=== PATIENT | male | born 1960 | race Caucasian/White ===

== ENCOUNTER → 2017-11-01 10:26 | Outpatient (CLI) | payer OTHER, SELFPAY ==
--- NOTE | 2017-11-01 10:29 | XR_ITS ---
XR ankle LT min 3V Ordering Physician: Marty Peterson MD Patient Age: 57 years: Male HISTORY: ITS.REASON: Left fib fx TECHNIQUE: 3 views left ankle COMPARISON :10/25/2017 FINDINGS . Fiberglas cast in place. The spiral fracture distal fibula again evident best seen on the lateral view.. On the lateral view there is a very subtle of 1-1.5 mm minor step-off of the cortex posteriorly with perhaps very subtle posterior offset of the distal fragment questioned. This this could be due to slight different projection angle of the lateral image, as well but noted. . Overall there is good alignment & apposition with only minimal distraction posteriorly.. A generous soft tissue swelling laterally overlying the lateral malleolus and fracture again noted IMPRESSION: Spiral fracture distal fibula now in fiberglass cast
== END ==
PROVIDERS: PCP Emergency Medicine; Visit Provider Orthopaedic Surgery
DX: S82.402A Unspecified fracture of shaft of left fibula, initial encounter for closed fracture (principal)
CPT/HCPCS: 73610

== ENCOUNTER → 2017-12-08 09:46 | Outpatient (CLI) | payer OTHER, SELFPAY ==
--- NOTE | 2017-12-08 09:48 | XR_ITS ---
XR ankle LT min 3V HISTORY: Follow-up fracture ITS.REASON: left fib fx/ xrays out of cast ORDERING PHYSICIAN: Marty Peterson MD PATIENT AGE: 57 years COMPARISON: 11/01/2017 FINDINGS: The cast has been removed. Oblique fracture of the distal fibula is once again noted with some minimal callus formation noted. There is good alignment. IMPRESSION: Healing oblique fracture distal fibula. Fracture line is still visible
== END ==
PROVIDERS: PCP Emergency Medicine; Visit Provider Orthopaedic Surgery
DX: S82.402A Unspecified fracture of shaft of left fibula, initial encounter for closed fracture (principal)
CPT/HCPCS: 73610

== ENCOUNTER 2017-12-08 10:42 | Outpatient (RCR) | payer OTHER, SELFPAY | END 2017-12-08 10:43 | disposition home or self-care (01) | LOC: PT 10:42 | PROVIDERS: Family Provider Emergency Medicine; PCP Emergency Medicine; Visit Provider Orthopaedic Surgery | DX: S82.402A Unspecified fracture of shaft of left fibula, initial encounter for closed fracture (principal) | CPT/HCPCS: 97760 ==

== ENCOUNTER → 2017-12-28 08:43 | Outpatient (CLI) | payer OTHER, SELFPAY ==
--- NOTE | 2017-12-28 08:45 | XR_ITS ---
XR ankle LT min 3V HISTORY: Follow-up fracture ITS.REASON: Left fibula Fracture ORDERING PHYSICIAN: Marty Peterson MD PATIENT AGE: 57 years Comparison: 12/08/2018 FINDINGS: Nondisplaced oblique distal fibular fracture once again noted. Fracture line appears somewhat less apparent and may represent an early healing. IMPRESSION: Good alignment healing distal fibular fracture
== END ==
PROVIDERS: PCP Emergency Medicine; Visit Provider Orthopaedic Surgery
DX: S82.402D Unspecified fracture of shaft of left fibula, subsequent encounter for closed fracture with routine healing (principal)
CPT/HCPCS: 73610

== ENCOUNTER → 2018-01-27 10:09 | Outpatient (CLI) | payer OTHER, SELFPAY ==
--- NOTE | 2018-01-27 10:10 | XR_ITS ---
XR ankle LT min 3V HISTORY: ITS.REASON: follow up left fibular fracture. ORDERING PHYSICIAN: Ronald Perdomo MD PATIENT AGE: 57 years Comparison: 12/28/2017 FINDINGS: Nondisplaced oblique distal fibular fracture once again noted is overall not significantly changed. Fracture line is still visible. In addition, there is a faint lucency at the posterior distal aspect of the tibia suggesting a nondisplaced fracture which extends into the articular surface of the distal tibia.. There is mild disuse osteopenia at the ankle joint. IMPRESSION: 1. Overall no change oblique nondisplaced distal fibular fracture. 2. Also suspect a nondisplaced fracture of the posterior distal tibia
== END ==
PROVIDERS: PCP Emergency Medicine; Visit Provider Orthopaedic Surgery
DX: S82.402A Unspecified fracture of shaft of left fibula, initial encounter for closed fracture (principal)
CPT/HCPCS: 73610

== ENCOUNTER 2018-03-07 14:30 | Outpatient (RCR) | payer OTHER, SELFPAY ==
--- NOTE | 2017-12-31 13:35 | HMH.PTOPEV ---
PT Outpatient Evaluation Rehab PT Outpatient Evaluation Start: 12/31/17 12:54 Freq: Status: Active Protocol: Document 12/31/17 13:26 ISMAEL (Rec: 12/31/17 13:35 PHORNE [id number]) Electronically Signed By Steven Munson, PT 12/31/17 13:26 Outpatient Therapy Subjective History Subjective History Pt is 57 yowm who presents ~ 2 mos S/P left oblique fibula fx, treated conservatively, with stiffness and edema. He reports mild pain only, but continues to have difficulty with full WB'ing. He reports difficulty getting his shoe on the affected foot due to edema. He reports no significant PMH. Chief Complaint Pain Stiff Swelling Symptom Type Ache Symptoms Relieved By Rest/Positioning Symptoms Aggravated By Walking Prior Functional Limitations None Current Functional Limitations Walking Symptom Description Intermittent Activity Dependent Level of pain today (0-10) 2 Pain scale - at its worst (0-10) 4 Ankle/Foot Eval Gait Observation General Gait Pattern Observation Antalgic Gait Decrease Weight Bear (L) Assistive Device Ambulation Assistive Device Axillary Crutches Palpation Tenderness left Ankle/Foot Palpation Findings Tenderness Ankle/Foot Palpation Overall Comment left lateral malleolus ROM Ankle/Foot Dorsiflexion w/Knee Extended 0-3 Active Range Motion (degrees) Ankle/Foot Dorsiflexion w/Knee Extended 0-10 Passive Range (degrees) Ankle/Foot Plantar Flexion Active Range 0-20 of Motion (degrees) Ankle/Foot Plantar Flexion Passive Range 0-27 of Motion (degrees) Ankle/Foot Eversion Active Range of 0-7 Motion (degrees) Ankle/Foot Eversion Passive Range of 0-14 Motion (degrees) Ankle/Foot Inversion Active Range of 0-23 Motion (degrees) Ankle/Foot Inversion Passive Range of 0-35 Motion (degrees) MMT Ankle Dorsiflexion Strength Grade 2+ Poor+ Ankle Plantarflexion Strength Grade 2+ Poor+ Foot Eversion Strength Grade 2+ Poor+ Foot Inversion Strength Grade 2+ Poor+ Outpatient Therapy Assessment Impairments Problems/Impairmments Palpation Tenderness Impaired Range of Motion Impaired Strength Impaired Gait Pattern Impaired Walking
--- NOTE | 2018-02-04 15:15 | HMH.RHREAS ---
Rehab Reassessment Rehab OP Re-assessment Start: 02/04/18 15:12 Freq: Status: Active Protocol: Document 02/04/18 15:12 ISMAEL (Rec: 02/04/18 15:15 ISMAEL [id number]) Electronically Signed By Steven Munson, PT 02/04/18 15:12 Rehab Re-assessment Subjective Subjective Pt reports much less pain overall, continues to have some discomfort with steps and some stiffness. Objective Objective Notes MMT Left ankle: Grossly 4+.5 throughout. AROM left ankle: DF = 0-10 deg Assessment Progress Assessment Progressing as Expected Assessment Notes Some continued stiffness in gastroc/soleus, but much improved strength and ambulating without cam walker now. Patient goals met ST,2,3,4,5 LT Goals Not Met LT,2,4,5 Revised Goals none Plan Plan Continue per initial POC. Frequency of Therapy 2x/wk Duration of therapy 8 wks. Time and Billing Re-Eval Time 15 Re-Eval Billing Units 1 PHYSICIAN CERTIFICATION: I certify the specified therapy services for Moi Diaz are required, authorized, and reviewed every 30 days.
== END 2018-03-07 14:35 | disposition home or self-care (01) ==
LOC: PT 14:30
PROVIDERS: Visit Provider Orthopaedic Surgery
DX: S82.402D Unspecified fracture of shaft of left fibula, subsequent encounter for closed fracture with routine healing (principal)
CPT/HCPCS: 97010; 97014; 97016; 97035; 97110; 97112; 97140; 97163; 97164; G0283

== ENCOUNTER → 2019-05-24 13:39 | Outpatient (CLI) | payer OTHER, SELFPAY | PROVIDERS: PCP Emergency Medicine; Visit Provider Emergency Medicine | DX: G47.33 Obstructive sleep apnea (adult) (pediatric) (principal) | CPT/HCPCS: 95806 ==

== ENCOUNTER → 2019-12-25 17:36 | Outpatient (CLI) | payer OTHER, SELFPAY ==
[2019-12-25 18:34] LABS: Basophils % 0.4 % (0.1-2.0); Eosinophils # 0.1 K/mm3 (0.0-0.4); Hematocrit 44.6 % (42.0-52.0); Hemoglobin 15.1 g/dL (14.1-18.0); Lymphocytes # 2.1 K/mm3 (0.7-4.5); Lymphocytes % 21.6 % (10-50); Mean Corpuscular HGB Conc 33.8 g/dL (31.8-35.4); Mean Corpuscular Hemoglobin 31.1 pg (27.0-31.2); Mean Corpuscular Volume 92.1 fl (80-94); Mean Platelet Volume 7.8 fl (7.4-10.4); Monocytes # 0.6 K/mm3 (0.1-1.0); Monocytes % 5.6 % (1.7-9.3); Neutrophils # 6.9 K/mm3 (1.8-7.8); Neutrophils % 71.3 % (37.0-80.0); Platelet Count 332 K/mm3 (142-424); Red Blood Count 4.85 M/mm3 (4.60-6.20); White Blood Count 9.7 K/mm3 (4.8-10.8)
[2019-12-25 18:50] LABS: Alanine Aminotransferase 16 U/L (12-78); Albumin Level 4.4 g/dl (3.5-5.0); Albumin/Globulin Ratio 1.8 (1.1-1.8); Alkaline Phosphatase 92 U/L (38-126); Anion Gap 14.2 mEq/L (5-15); Aspartate Amino Transferase 24 U/L (17-59); Bilirubin,Total 0.3 mg/dl (0.2-1.3); Blood Urea Nitrogen 22 mg/dl (9-20); Calcium 9.4 mg/dl (8.4-10.2); Carbon Dioxide 30 mmol/L (22.0-30.0); Chloride 100 mmol/L (98-107); Chol/HDL Ratio 4.2 (1-3.5); Cholesterol 210 mg/dl (140-200); Estimated Glomerular Filt Rate 99 ml/min (>60); GFR (African American) 120 ML/MIN (>60); Globulin 2.5 g/dL (1.3-3.2); Glucose 131 mg/dl (74-100); HDL Cholesterol 50 mg/dl (40-60); Potassium 4.2 mmoL/L (3.5-5.1); Sodium 140 mmol/L (136-145); Total Protein,Serum 6.9 g/dl (6.3-8.2); Triglycerides 294 mg/dl (30-150); VLDL Cholesterol 59 mg/dL (0-40)
[2019-12-25 19:02] LABS: Free T4 (Free Thyroxine) 1.13 ng/dl (0.78-2.19)
[2019-12-25 19:06] LABS: 25-OH Vitamin D, Total 42.1 ng/mL (30-100)
[2019-12-25 19:20] LABS: Prostate Specific Ag Screen 1.7 ng/ml (0.0-4.0); Thyroid Stimulating Hormone 1.01 uIU/mL (0.465-4.68)
== END ==
PROVIDERS: Visit Provider Emergency Medicine
DX: I10 Essential (primary) hypertension (principal); E55.9 Vitamin D deficiency, unspecified; Z12.5 Encounter for screening for malignant neoplasm of prostate
CPT/HCPCS: 80053; 80061; 82306; 84439; 84443; 85025; G0103

== ENCOUNTER → 2020-01-03 16:19 | Outpatient (CLI) | payer OTHER, SELFPAY ==
[2020-01-03 16:54] LABS: Hemoglobin A1C 6.2 % (4.0-6.0)
== END ==
PROVIDERS: Visit Provider Emergency Medicine
DX: R73.9 Hyperglycemia, unspecified (principal)
CPT/HCPCS: 83036

== ENCOUNTER 2020-11-13 12:36 | Emergency (ER) | payer OTHER, SELFPAY ==
[2020-11-13 12:37] VITALS: BP 148/86; PULSE 79; RESP 18; TEMP 36.8; O2SAT 99; BMI 41.5
--- NOTE | 2020-11-13 12:44 | US_ITS ---
PROCEDURE: US GALLBLADDER CLINICAL INDICATION: RUQ pain COMPARISON: No exams were available for comparison FINDINGS: Pancreas: Pancreas is not well delineated due to overlying bowel gas. CT without and with contrast with pancreatic protocol may provide further evaluation if clinically desired. Liver: Unremarkable. There is appropriate direction of blood flow within a non dilated portal vein. Right kidney: Unremarkable appearing. No hydronephrosis. Gallbladder: No stones are evident. There is no gallbladder wall thickening. Common duct is normal in diameter. IMPRESSION: Negative gallbladder ultrasound. No stones evident. Dictated by: James Baxter MD 11/13/2020 14:49 James Baxter MD in [facility] 11/13/2020 14:49
[2020-11-13 13:13] LABS: Basophils % 0.3 % (0.1-2.0); Eosinophils % 0.1 % (0.1-12.0); Hematocrit 44.2 % (42.0-52.0); Hemoglobin 15.1 g/dL (14.1-18.0); Lymphocytes # 1.6 K/mm3 (0.7-4.5); Lymphocytes % 11.9 % (10-50); Mean Corpuscular HGB Conc 34.2 g/dL (31.8-35.4); Mean Corpuscular Volume 87.8 fl (80-94); Mean Platelet Volume 7.4 fl (7.4-10.4); Monocytes # 0.7 K/mm3 (0.1-1.0); Neutrophils # 11.2 K/mm3 (1.8-7.8); Neutrophils % 82.7 % (37.0-80.0); Platelet Count 301 K/mm3 (142-424); Red Blood Count 5.04 M/mm3 (4.60-6.20); Red Cell Distribution Width 13.5 % (11.5-17.5); White Blood Count 13.6 K/mm3 (4.8-10.8)
[2020-11-13 13:15] LABS: Chloride 100 mmol/L (98-107); Sodium 138 mmol/L (136-145)
[2020-11-13 13:18] LABS: Alanine Aminotransferase 16 U/L (12-78); Albumin Level 4.9 g/dl (3.5-5.0); Albumin/Globulin Ratio 1.6 (1.1-1.8); Alkaline Phosphatase 89 U/L (38-126); Aspartate Amino Transferase 21 U/L (17-59); Bilirubin,Total 0.9 mg/dl (0.2-1.3); Blood Urea Nitrogen 16 mg/dl (9-20); Calcium 9.3 mg/dl (8.4-10.2); Carbon Dioxide 29 mmol/L (22.0-30.0); Creatinine Clearance Estimated 103 mL/min (50-200); Estimated Glomerular Filt Rate 99 ml/min (>60); GFR (African American) 120 ML/MIN (>60); Globulin 3.1 g/dL (1.3-3.2); Glucose 110 mg/dl (74-100); Lipase 55 U/L (23-300)
--- NOTE | 2020-11-13 13:33 | PC.NURSE ---
pt return from ultrasound
--- NOTE | 2020-11-13 13:33 | PC.NURSE ---
received verbal report from [employer] via phone, relayed information to ER MD at this time
[2020-11-13 13:35] LABS: Troponin I < 0.01 ng/ml (0.00-0.034)
--- NOTE | 2020-11-13 14:24 | HMH.EDGENADL ---
ED Disposition Clinical Impression: Gallbladder sludge Abdominal pain Qualifiers: Abdominal location: right upper quadrant Qualified Code(s): R10.11 - Right upper quadrant pain Disposition: Home, Self-Care Condition on Discharge: Good Instructions: DI for Acute Abdominal Pain Referrals: Mark Adams MD [Primary Care Provider] - 3 days Tr Man MD [Staff Physician] - (Call for appointment) Time of Disposition: 14:29 - Critical Care Critical Care Time: No Attestation: On 11/13/20, the high probability of a clinically significant, sudden or life threatening deterioration of the following system(s) required my full and direct attention, intervention and personal management. The time I documented below is in addition to time spent performing reported procedures but includes the following listed in this critical care notation. Medical Decision Making - Medical Records Medical records reviewed: Yes: I reviewed the patient's medical records. - Sebastian Inquiry Pt receiving controlled substance: No Vital Signs: 11/13/20 12:37 Temperature 98.3 F Temperature Source Oral Pulse Rate [Right] 79 Respiratory Rate 18 Blood Pressure [Right Arm] 148/86 H Blood Pressure Mean [Right Arm] 106 02 Sat by Pulse Oximetry 99 Oxygen Delivery Method Room Air - Lab Data Lab results reviewed: Yes: I reviewed the patient's lab results. Lab Results 11/13/20 12:50: WBC 13.6 H, RBC 5.04, Hgb 15.1, Hct 44.2, MCV 87.8, MCH 30.0, MCHC 34.2, RDW 13.5, Plt Count 301, MPV 7.4, Neut % (Auto) 82.7 H, Lymph % (Auto) 11.9, [place] % (Auto) 5.0, Eos % (Auto) 0.1, Baso % (Auto) 0.3, Neut # (Auto) 11.2 H, Lymph # (Auto) 1.6, [place] # (Auto) 0.7, Eos # (Auto) 0.0, Baso # (Auto) 0.0 11/13/20 12:50: Sodium 138, Potassium 4.0, Chloride 100, Carbon Dioxide 29, Anion Gap 13.0, BUN 16, Creatinine 0.80, Estimated Creat Clear 103, Estimated GFR 99, Est GFR ( Amer) 120, Glucose 110 H, Calcium 9.3, Total Bilirubin 0.9, AST 21, ALT 16, Alkaline Phosphatase 89, Troponin I < 0.01, Total Protein 8.0, Albumin 4.9, Globulin 3.1, Albumin/Globulin Ratio 1.6, Lipase 55 Result diagrams: 11/13/20 12:50 11/13/20 12:50 Orders (Tests/Meds): ORDERS Category Date Time Status US gallbladder Stat Exams 11/13/20 12:44 Taken - US Data US Images: Gallbladder Findings Narrative: Sludge without dilation of the common bile duct. Medical Decision Narrative: 60yo M evaluated for right upper quadrant pain. Patient no acute distress on initial evaluation. He has a known history of gallbladder disease. CBC, CMP, lipase, ultrasound are ordered. Patient is largely asymptomatic when sitting at rest. Patient has a mild leukocytosis of 13. Metabolic panel is completely benign. Ultrasound shows sludge without common bile duct thickening. Discussed all findings with patient at bedside. His last HIDA scan was 5 to 6 years ago. Encouraged him to follow-up with Dr. Man for consideration of repeat study and further evaluation of his ongoing gallbladder dysfunction. General Adult HPI - General Chief complaint: Abdominal Pain Stated complaint: stomach pain Time Seen by Provider: 11/13/20 12:43 Mode of Arrival: Ambulatory Limitations: No Limitations Description of Symptoms (Recalled from ER Triage Doc. by RN): c/o right sided abdominal pain & bloating since yesterday. hx gallbladder issues states it feels similar. denies N/V/D/fevers. - History of Present Illness HPI narrative: 60yo M presents the emergency department secondary to right upper quadrant pain. Patient reports a history of gallbladder dysfunction and believes it is worsened. He denies fever, nausea or vomiting. He endorses mild bloating. He states symptoms worsened last night after eating dinner. Patient reports undergoing a HIDA scan around 2015 and having 35% function. - Related Data Previous Rx's Medication Instructions Recorded lisinopril 20 See Rx Instructions .ROUTE
[2020-11-13 14:37] VITALS: BP 128/79; PULSE 78; RESP 16; TEMP 36.8; O2SAT 96
== END 2020-11-13 14:39 | disposition home or self-care (01) ==
PROVIDERS: Emergency Provider Family Medicine; PCP Emergency Medicine
DX: R10.11 Right upper quadrant pain (principal); K82.8 Other specified diseases of gallbladder; I10 Essential (primary) hypertension
CPT/HCPCS: 76705; 80053; 83690; 84484; 85025; 99283

== ENCOUNTER → 2020-11-26 06:41 | Outpatient (CLI) | payer OTHER, SELFPAY ==
--- NOTE | 2020-11-26 06:41 | NM_ITS ---
PROCEDURE: NM HEPATOBILIARY WO PHARM CLINICAL INDICATION: RUQ pain COMPARISON: No exams were available for comparison TECHNIQUE: DOSE: 5.25 mCi technetium Choletec Fatty meal with Ensure FINDINGS: Homogeneous activity is present within the hepatic parenchyma. Activity is present in the gallbladder by 5 minutes. Activity is present in the small bowel by 5 minutes. The gallbladder ejection fraction is calculated to be 21 percent. Patient reported mild pain with fatty meal IMPRESSION: No evidence of common or cystic duct obstruction. Gallbladder ejection fraction is low at 21 percent with normal greater than 35 percent. Please correlate with clinical parameters regarding possibility of biliary dyskinesia/hypokinesia Dictated by: James Baxter MD 11/26/2020 10:59 James Baxter MD in [place] 11/26/2020 10:59
--- NOTE | 2020-11-26 06:57 | HMH.ITSHM ---
Current Home Medications as stated by this patient Moi Diaz or patient support representative. []LISINOPRIL
== END ==
PROVIDERS: PCP Emergency Medicine; Visit Provider Surgery
DX: R10.11 Right upper quadrant pain (principal)
CPT/HCPCS: 78226; A9537

== ENCOUNTER → 2021-04-17 13:21 | Outpatient (CLI) | payer OTHER, SELFPAY ==
[2021-04-17 15:04] LABS: Prostate Specific Ag Screen 1.5 ng/ml (0.0-4.0)
== END ==
PROVIDERS: PCP Emergency Medicine; Visit Provider Urology
DX: Z12.5 Encounter for screening for malignant neoplasm of prostate (principal)
CPT/HCPCS: 36415; G0103

== ENCOUNTER → 2021-11-26 19:10 | Outpatient (CLI) | payer OTHER, SELFPAY ==
[2021-11-26 15:45] LABS: Basophils # 0.1 K/mm3 (0-0.2); Basophils % 1.1 % (0.1-2.0); Eosinophils # 0.1 K/mm3 (0.0-0.4); Eosinophils % 0.6 % (0.1-12.0); Hematocrit 47.3 % (42.0-52.0); Hemoglobin 15.1 g/dL (14.1-18.0); Lymphocytes # 1.8 K/mm3 (0.7-4.5); Lymphocytes % 18.6 % (10-50); Mean Corpuscular HGB Conc 31.9 g/dL (31.8-35.4); Mean Corpuscular Volume 93.8 fl (80-94); Mean Platelet Volume 7.9 fl (7.4-10.4); Monocytes # 0.6 K/mm3 (0.1-1.0); Monocytes % 5.7 % (1.7-9.3); Neutrophils # 7.3 K/mm3 (1.8-7.8); Platelet Count 363 K/mm3 (142-424); Red Blood Count 5.04 M/mm3 (4.60-6.20); Red Cell Distribution Width 13.3 % (11.5-17.5); White Blood Count 9.8 K/mm3 (4.8-10.8)
[2021-11-26 16:05] LABS: Alanine Aminotransferase 17 U/L (12-78); Albumin Level 4.4 g/dl (3.5-5.0); Albumin/Globulin Ratio 1.8 (1.1-1.8); Alkaline Phosphatase 106 U/L (38-126); Anion Gap 12.7 mEq/L (5-15); Aspartate Amino Transferase 20 U/L (17-59); Blood Urea Nitrogen 17 mg/dl (9-20); Calcium 9.2 mg/dl (8.4-10.2); Carbon Dioxide 30 mmol/L (22.0-30.0); Chloride 101 mmol/L (98-107); Chol/HDL Ratio 3.9 (1-3.5); Cholesterol 193 mg/dl (140-200); Estimated Glomerular Filt Rate 86 ml/min (>60); GFR (African American) 104 ML/MIN (>60); Globulin 2.5 g/dL (1.3-3.2); Glucose 112 mg/dl (74-100); HDL Cholesterol 49 mg/dl (40-60); Potassium 4.7 mmoL/L (3.5-5.1); Sodium 139 mmol/L (136-145); Total Protein,Serum 6.9 g/dl (6.3-8.2); Triglycerides 273 mg/dl (30-150); VLDL Cholesterol 55 mg/dL (0-40)
[2021-11-26 16:10] LABS: Bilirubin,Total < 0.1 mg/dl (0.2-1.3)
[2021-11-26 16:22] LABS: Free T4 (Free Thyroxine) 0.96 ng/dl (0.78-2.19)
[2021-11-26 16:23] LABS: 25-OH Vitamin D, Total 40.9 ng/mL (30-100)
[2021-11-26 16:37] LABS: Thyroid Stimulating Hormone 0.69 uIU/mL (0.465-4.68)
[2021-11-28 08:20] LABS: Direct LDL Cholesterol 97 mg/dL (100-129)
== END ==
PROVIDERS: PCP Emergency Medicine; Visit Provider Emergency Medicine
DX: E03.9 Hypothyroidism, unspecified (principal); R53.83 Other fatigue; K59.00 Constipation, unspecified; E66.9 Obesity, unspecified; Z68.30 Body mass index [BMI] 30.0-30.9, adult
CPT/HCPCS: 80053; 80061; 82306; 84439; 84443; 85025

== ENCOUNTER → 2022-04-16 10:12 | Outpatient (CLI) | payer OTHER, SELFPAY ==
[2022-04-16 10:40] LABS: Basophils # 0.1 K/mm3 (0-0.2); Basophils % 0.6 % (0.1-2.0); Eosinophils # 0.1 K/mm3 (0.0-0.4); Eosinophils % 0.5 % (0.1-12.0); Hematocrit 45.8 % (42.0-52.0); Hemoglobin 14.8 g/dL (14.1-18.0); Lymphocytes # 1.8 K/mm3 (0.7-4.5); Mean Corpuscular HGB Conc 32.4 g/dL (31.8-35.4); Mean Corpuscular Hemoglobin 29.2 pg (27.0-31.2); Mean Corpuscular Volume 90.3 fl (80-94); Mean Platelet Volume 7.2 fl (7.4-10.4); Monocytes # 0.6 K/mm3 (0.1-1.0); Neutrophils # 8.6 K/mm3 (1.8-7.8); Neutrophils % 77.8 % (37.0-80.0); Platelet Count 341 K/mm3 (142-424); Red Blood Count 5.08 M/mm3 (4.60-6.20); Red Cell Distribution Width 13.2 % (11.5-17.5)
[2022-04-16 10:58] LABS: Chloride 100 mmol/L (98-107); Potassium 4.1 mmoL/L (3.5-5.1); Sodium 138 mmol/L (136-145)
[2022-04-16 11:00] LABS: Alanine Aminotransferase 21 U/L (12-78); Aspartate Amino Transferase 21 U/L (17-59); Blood Urea Nitrogen 21 mg/dl (9-20); Estimated Glomerular Filt Rate 98 ml/min (>60); GFR (African American) 119 ML/MIN (>60)
[2022-04-16 11:01] LABS: Albumin Level 4.3 g/dl (3.5-5.0); Albumin/Globulin Ratio 1.7 (1.1-1.8); Alkaline Phosphatase 102 U/L (38-126); Anion Gap 11.1 mEq/L (5-15); Bilirubin,Total 0.4 mg/dl (0.2-1.3); Calcium 8.7 mg/dl (8.4-10.2); Carbon Dioxide 31 mmol/L (22.0-30.0); Globulin 2.6 g/dL (1.3-3.2); Glucose 135 mg/dl (74-100); Total Protein,Serum 6.9 g/dl (6.3-8.2)
[2022-04-16 11:03] LABS: INR 0.94 (0.9-1.1); Prothrombin Time 10.2 seconds (10.1-12.5)
== END ==
PROVIDERS: PCP Emergency Medicine; Visit Provider Surgery
DX: K82.8 Other specified diseases of gallbladder (principal)
CPT/HCPCS: 36415; 80053; 85025; 85610

== ENCOUNTER 2022-04-20 07:36 | Day surgery (SDC) | payer OTHER, SELFPAY ==
[2022-04-20] VITALS (11 sets, daily range): BP systolic 96–123; BP diastolic 59–89; PULSE 79–101; RESP 13–19; TEMP 36.2–43; O2SAT 94–99; BMI 30.8
--- NOTE | 2022-04-20 09:06 | EXP.ANES.CKL ---
[facility] Disclaimer: The information contained in this section may have been updated after the patient was seen, as this information can be updated by other users. Medical History Chronic cough COPD (chronic obstructive pulmonary disease) History of right inguinal hernia Hypertension Sleep apnea Urinary retention Surgical History History of colonoscopy Family History Other Family history of myocardial infarction Lung cancer Social History Smoking Status: Current every day smoker alcohol intake: never substance use type: marijuana counseling provided: none current occupational status: unemployed Travel in the last 8 weeks: None household members: family housing: house caffeine: No [facility] Anesthesia Checklist Patient Identification Patient Identification: Arm Band and Verbal (Name & ) Structural Data Admitted From: Home Planned Operative Procedure/s: Inder. sandrita Consent for Planned Operative Procedure(s) Verified: Yes NPO Status Verified Time NPO: 00:00 Additional verifications Anesthesia Reactions: No Hx Blood Transfusions: No Airway Assessment C-Spine Mobility Assessed: Yes TMJ Mobility Assessed: Yes Dentition: Good Dentition Neurological Assessment Level of Consciousness: Awake Hx Seizures: No Numbness or tingling in extremities: No Anesthesia Plan Anesthesia Risk discussed: Yes Anesthesia Plan: Verified ASA Class: II Anesthesia Type: General
--- NOTE | 2022-04-20 10:26 | EXP.OP.NOTE ---
Date of procedure: 04/20/22 Pre-op Diagnosis:: Gallbladder disease Incidental umbilical hernia Post-op Diagnosis:: Same Procedure performed:: Laparoscopic cholecystectomy Primary repair of umbilical hernia Surgeon:: Tr Man MD PICKING MACHINE OPERATOR:: Navi Briones Anesthesia: GETA Estimated blood loss (mL): 15 Clinical Note:: Patient is a 62-year-old male from [place] who is well-known to me. I have seen him for several years discussing possible cholecystectomy. He has repeatedly declined. He recently presented the office for recurrent gallbladder issues and possible surgery. He has had occasional right upper quadrant pain and gas pains. He had previous ultrasound which revealed no gallstones. HIDA scan revealed ejection fraction of 31% with CCK. Recently he had presented with recurrent symptoms as he had previously declined gallbladder surgery. He describes significant abdominal bloating. Is found to have tenderness in the right upper quadrant. He wished to pursue cholecystectomy. Operative findings:: He had some appreciable visceral fat. He has some mild hepatomegaly. He had a somewhat distended gallbladder without thickening or stones. He had a thickened omentum which was actually in the upper abdomen. Operative note:: Patient was taken to the operating room. He was given preoperative intravenous antibiotics. In the operating room he was placed in a supine position. General anesthesia was induced via endotracheal tube. Abdomen was prepped and draped in the standard surgical fashion. Subumbilical skin incision was made. Dissection was carried down to hernia sac which was incised from the dermis. He had about a 10 or 12 mm defect at the umbilicus. This was cleaned free. Fascial stay sutures were placed. Jj blunt trocar was inserted into the peritoneal cavity. CO2 pneumoperitoneum was achieved to 15 mmHg. He was positioned in reverse Trendelenburg left side down. A couple of 5 mm trochars were inserted in the right upper abdomen. 10 mm trocar was inserted in the epigastrium. He had some hepatomegaly and fatty infiltration of the liver. There is a significant amount of visceral fat. Gallbladder was identified and grasped retracted anteriorly and superiorly over the dome of the liver. Infundibulum of the gallbladder was retracted anterior laterally. Blunt dissection was carried out at the neck of the gallbladder bluntly incising the visceral peritoneum. Dissection was carried out identifying the cystic duct. There was some appreciable fatty infiltration around the neck of the gallbladder and ultimately the cystic artery was identified. Cystic duct was isolated, multiply clipped, and sharply divided. Cystic artery was carefully coagulated with RAIMUNDO ultrasonic robotic gustavo and divided. Gallbladder was dissected free from the liver in a retrograde fashion using RAIMUNDO ultrasonic harmonic gustavo. There was some unavoidable spillage of bile from the gallbladder which was suctioned free. Gallbladder was placed within an Endo Catch retrieval device removed from the peritoneal cavity via the umbilical trocar site. Gallbladder fossa was then thoroughly irrigated and aspirated till clear. Some use of laparoscopic electrocautery was used on the gallbladder fossa and adjacent liver where there was superficial tear of the large liver. There was good hemostasis. The thickened omentum was mostly in the upper abdomen. This was retracted and manipulated to normal anatomic location. Trochars were then removed as CO2 pneumoperitoneum was evacuated. The umbilical hernia defect was closed with multiple interrupted 0 Ethibond sutures. Deep dermal tissue was reapproximated with 2-0 Vicryl. Local anesthetic was infiltrated. Skin was closed with 4-0 Monocryl in a subcuticular fashion. Dermabond and dressings were applied. Condition: stable Disposition: PACU Complications:: None immediately apparent
--- NOTE | 2022-04-20 10:32 | P.PNANES_ITS ---
[facility] Anesthesia Record Part I Anesthesia Record I Intake, IV Amount: 800 Estimated blood loss (mL): 20 Urine output (mL): 0 Blood Pressure: 119/65 SaO2: 97 Pulse Rate: 101 Respiratory Rate: 13 Temperature: 97.9 F Patient is:: Drowsy and Oral/Nasal airway Stable to PACU at:: 10:31
--- NOTE | 2022-04-24 11:38 | EXP.ANES.II ---
[facility] Anesthesia Record Part II Anesthesia Record Part II Discharge Time: 11:11 Destination: Surgical Day Care (OP Surgery) PACU nurse assessment reviewed?: Yes Patient Condition:: Good Anesthesia Complications:: None Swallowing reflex intact?: Yes Cyanosis?: No Blood Pressure: 111/64 Pulse Rate: 79 Temperature: 97.1 F Mental Status: Alert & Oriented Pain level:: 3 Nausea and/or vomitting:: None Intake, IV Amount: 0
[2022-04-24 11:39] VITALS: BP 111/64; PULSE 79; TEMP 36.2
== END 2022-04-20 11:50 | disposition home or self-care (01) ==
PROVIDERS: PCP Emergency Medicine; Visit Provider Surgery
PROC: 0FT44ZZ Resection of Gallbladder, Percutaneous Endoscopic Approach (ICD-10-PCS; CPT 47562; principal; 2022-04-20 09:30)
DX: K81.1 Chronic cholecystitis (principal); K42.9 Umbilical hernia without obstruction or gangrene; R16.0 Hepatomegaly, not elsewhere classified; Z79.899 Other long term (current) drug therapy
CPT/HCPCS: 47562; 49591; 96374

== ENCOUNTER 2022-08-21 09:52 | Day surgery (SDC) | payer OTHER, SELFPAY ==
--- NOTE | 2022-08-21 10:21 | HMH.SCOPE ---
Procedure: Date: 08/21/22 Patient Date of :: 1960 Procedure Performed:: Total colonoscopy with polypectomy Indications:: Patient is a 62-year-old male who is well-known to me. He relatively recently underwent cholecystectomy. I had performed colonoscopy on him on 08/13/2015 at which time he had 19 polyps removed. Of these he had 11 tubular adenomas, 5 tubulovillous adenomas, and 2 sessile serrated adenomas. I performed follow-up colonoscopy April 2016 and he had a couple of tubular adenomas. Colonoscopy 2 years later on 05/17/2018 revealed a single tubular adenoma. 3-year follow-up was recommended given his prior history of numerous adenomatous polyps including serrated adenomas and tubulovillous adenomas. Performing Provider:: Tr Man MD Referring Provider:: William Adams Sedation:: MAC sedation Procedure:: Patient history was obtained and appropriate physical examination was performed. Patient's medications and allergies were reviewed. Informed consent was obtained after explaining the benefits, alternatives, and risks of the procedure including, but not limited to, bleeding, perforation, missed lesions, and adverse reaction to anesthesia medications. Patient was transported to endoscopy procedure room. Patient was connected to monitoring devices. Throughout the procedure the patient's blood pressure, pulse, and oxygen saturations were monitored continuously. Patient identification and planned procedure were verified by the staff. Patient was positioned in lateral decubitus position. Digital anorectal exam was performed. Variable stiffness Olympus colonoscope was inserted and advanced under direct visualization to the cecum. Adequacy of the colonic preparation was noted. The colonoscope was then slowly withdrawn while carefully examining the color, texture, anatomy, and integrity of the mucosoa circumferentially. Within the rectum retroflexion was performed. Colonoscope was then withdrawn. Findings:: Colonic preparation was excellent. He had a adenomatous appearing sessile polyp adjacent to the appendiceal orifice in the cecum which was removed mostly with cold snare with residual adenomatous tissue removed with biopsy forceps. In the distal transverse colon there was a diminutive polyp removed with biopsy forceps. Sigmoid colon there was a diminutive polyp removed with biopsy forceps. The rectosigmoid there was hyperplastic appearing polyp removed with biopsy forceps. Retroflexion revealed minimal prolapsing internal hemorrhoids. He had a few scattered sigmoid diverticuli. Impression: Sessile adenomatous polyp in the cecum Diminutive distal transverse polyp Diminutive sigmoid polyp Hyperplastic appearing rectosigmoid polyp Scattered rare diverticulosis Prolapsing internal hemorrhoids Recommendations:: Repeat colonoscopy 3 to 5 years pending pathology Complications:: None immediate Estimated blood obtained (mL): 2
[2022-08-21 10:24] VITALS: BP 135/85; PULSE 70; RESP 18; TEMP 36.3; O2SAT 97
[2022-08-21 10:30] VITALS: BMI 30.8
--- NOTE | 2022-08-21 10:38 | P.PN_ITS ---
[facility] Disclaimer: The information contained in this section may have been updated after the patient was seen, as this information can be updated by other users. Medical History Chronic cough COPD (chronic obstructive pulmonary disease) History of right inguinal hernia Hypertension Sleep apnea Urinary retention Surgical History History of colonoscopy History of laparoscopic cholecystectomy Family History Other Family history of myocardial infarction Lung cancer Social History (Updated 08/21/22 @ 10:22 by Nelsy Williamson RN) Smoking Status: Former smoker alcohol intake: never substance use type: marijuana counseling provided: none current occupational status: unemployed Travel in the last 8 weeks: Inside the [place] adopted: No caregiver/support person: No foster care: No household members: family housing: house lives independently: No marital status: caffeine: No [facility] Anesthesia Checklist Patient Identification Patient Identification: Arm Band and Family Structural Data Admitted From: Home Planned Operative Procedure/s: COLONOSCOPY Consent for Planned Operative Procedure(s) Verified: Yes Verified Documents: Surgical Consent and History and Physical NPO Status Verified Time NPO: 00:00 Additional verifications Patient : No Anesthesia Reactions: No Hx Blood Transfusions: No Blood Transfusion Reaction: No Cephalosporin Allergy: No Previous Colonoscopy: Yes Airway Assessment C-Spine Mobility Assessed: Yes TMJ Mobility Assessed: Yes Dentition: Good Dentition Neurological Assessment Level of Consciousness: Awake, Alert, Appropriate and Follows Commands Hx Seizures: No Numbness or tingling in extremities: No Anesthesia Plan Anesthesia Risk discussed: Yes ASA Class: II Anesthesia Type: MAC Preoperative Comments Pre-Operative Comments: HYPERTENSION. HISTORY OF POLYPS,
[2022-08-21 10:47] VITALS: O2SAT 97
[2022-08-21 11:29] VITALS: BP 106/56; PULSE 82; RESP 16; TEMP 36.6; O2SAT 95
[2022-08-21 11:39] VITALS: BP 129/51; PULSE 69; RESP 18; O2SAT 97
[2022-08-21 11:49] VITALS: BP 120/77; PULSE 66; RESP 18; O2SAT 97
[2022-08-21 11:59] VITALS: BP 126/82; PULSE 60; RESP 18; O2SAT 97
== END 2022-08-21 11:59 | disposition home or self-care (01) ==
PROVIDERS: PCP Emergency Medicine; Visit Provider Surgery
PROC: 0DJD8ZZ Inspection of Lower Intestinal Tract, Via Natural or Artificial Opening Endoscopic (ICD-10-PCS; CPT 45380; principal; 2022-08-21 11:00)
DX: Z12.11 Encounter for screening for malignant neoplasm of colon (principal); D12.0 Benign neoplasm of cecum; D12.3 Benign neoplasm of transverse colon; D12.5 Benign neoplasm of sigmoid colon; D12.7 Benign neoplasm of rectosigmoid junction; K57.30 Diverticulosis of large intestine without perforation or abscess without bleeding; K64.8 Other hemorrhoids; Z79.899 Other long term (current) drug therapy
CPT/HCPCS: 45380; 45385; J2704

== ENCOUNTER → 2023-03-18 09:03 | Outpatient (CLI) | payer OTHER, SELFPAY ==
[2023-03-18 20:09] LABS: Chol/HDL Ratio 4.5 (1-3.5); Cholesterol 197 mg/dl (140-200); HDL Cholesterol 44 mg/dl (40-60); Triglycerides 281 mg/dl (30-150); VLDL Cholesterol 56 mg/dL (0-40)
[2023-03-18 20:20] LABS: Direct LDL Cholesterol 110.29 mg/dL (100-129)
[2023-03-18 20:39] LABS: Prostate Specific Ag Screen 1.1 ng/ml (0.0-4.0)
[2023-03-18 22:33] LABS: Hemoglobin A1C 6.4 % (4.0-6.0)
[2023-03-18 23:37] LABS: Creatinine,Urine Random 377 mg/dL (Not Estab.); Microalbumin/Creatinine Ratio 3.6
== END ==
LOC: LAB.DROPOF 03-19 09:03
PROVIDERS: PCP Internal Medicine; Visit Provider Internal Medicine
DX: R53.83 Other fatigue (principal); I10 Essential (primary) hypertension; J44.9 Chronic obstructive pulmonary disease, unspecified; G47.33 Obstructive sleep apnea (adult) (pediatric); Z79.899 Other long term (current) drug therapy; Z12.5 Encounter for screening for malignant neoplasm of prostate
CPT/HCPCS: 80061; 82043; 82570; 83036; G0103

== ENCOUNTER 2024-02-08 11:10 | Outpatient (CLI) | payer OTHER, SELFPAY ==
[2024-02-08 18:25] LABS: Basophils % 0.5 % (0.1-2.0); Eosinophils % 0.3 % (0.1-12.0); Hematocrit 48.9 % (42.0-52.0); Hemoglobin 15.7 g/dL (14.1-18.0); Lymphocytes % 24.3 % (10-50); Mean Corpuscular HGB Conc 32.2 g/dL (31.8-35.4); Mean Corpuscular Hemoglobin 28.5 pg (27.0-31.2); Mean Corpuscular Volume 88.5 fl (80-94); Mean Platelet Volume 8.2 fl (7.4-10.4); Monocytes # 0.5 K/mm3 (0.1-1.0); Monocytes % 5.6 % (1.7-9.3); Neutrophils # 5.8 K/mm3 (1.8-7.8); Neutrophils % 69.4 % (37.0-80.0); Platelet Count 304 K/mm3 (142-424); Red Blood Count 5.52 M/mm3 (4.60-6.20); Red Cell Distribution Width 13.6 % (11.5-17.5); White Blood Count 8.4 K/mm3 (4.8-10.8)
[2024-02-08 18:56] LABS: Alanine Aminotransferase 17 U/L (12-78); Albumin Level 4.3 g/dl (3.5-5.0); Albumin/Globulin Ratio 1.6 (1.1-1.8); Alkaline Phosphatase 90 U/L (38-126); Anion Gap 17.6 mEq/L (5-15); Aspartate Amino Transferase 20 U/L (17-59); Bilirubin,Total 0.6 mg/dl (0.2-1.3); Blood Urea Nitrogen 18 mg/dl (9-20); Calcium 9.1 mg/dl (8.4-10.2); Carbon Dioxide 28 mmol/L (22.0-30.0); Chloride 96 mmol/L (98-107); Chol/HDL Ratio 3.9 (1-3.5); Cholesterol 184 mg/dl (140-200); Estimated Glomerular Filt Rate 98 ml/min (>60); GFR (African American) 118 ML/MIN (>60); Globulin 2.7 g/dL (1.3-3.2); Glucose 116 mg/dl (74-100); HDL Cholesterol 47 mg/dl (40-60); Potassium 4.6 mmoL/L (3.5-5.1); Sodium 137 mmol/L (136-145); Triglycerides 129 mg/dl (30-150); VLDL Cholesterol 26 mg/dL (0-40)
[2024-02-08 19:07] LABS: Direct LDL Cholesterol 119.59 mg/dL (100-129)
[2024-02-08 19:29] LABS: Hemoglobin A1C 6.4 % (4.0-6.0)
[2024-02-08 19:32] LABS: Microalbumin < 6.000 mg/L (0-16.7)
[2024-02-08 19:40] LABS: Creatinine,Urine Random 113 mg/dL (Not Estab.)
== END 2024-02-08 23:59 | disposition home or self-care (01) ==
LOC: LAB.DROPOF 02-09 12:46
PROVIDERS: PCP Internal Medicine; Visit Provider Internal Medicine
DX: L03.113 Cellulitis of right upper limb (principal); E66.9 Obesity, unspecified; I10 Essential (primary) hypertension; Z12.5 Encounter for screening for malignant neoplasm of prostate; Z13.1 Encounter for screening for diabetes mellitus; Z68.30 Body mass index [BMI] 30.0-30.9, adult
CPT/HCPCS: 80053; 80061; 82043; 82570; 83036; 85025

== ENCOUNTER 2024-02-28 07:23 | Outpatient (CLI) | payer OTHER, SELFPAY ==
--- NOTE | 2024-02-28 07:36 | CT_ITS ---
APPROVED REPORT Donor Services Team Leader: CLINICAL INDICATION Risk stratification TECHNIQUE Image Acquisition: A 128 slice MDCT scanner (GageIna View) was used for data acquisition. A noncontrast coronary calcium scan was performed. A CT attenuation threshold of 130 Hounsfield units (HU) was used for the detection of calcium in contiguous voxels of 1 sq mm in area to be counted as individual lesions. A tube voltage of 120 KVp was used. The patient received no medications prior to the coronary calcium CT. Image Reconstruction Transaxial images were reconstructed at 0.67 mm slide thickness. Data was reviewed interactively on an advanced workstation capable of 2 and 3-dimensional displays in all conventional reconstruction formats, including multiplanar reformations, maximum intensity projections, curved multiplanar reformations, and volume rendered reconstructions. When applicable, selected routine images describing the relevant coronary anatomy and pathology were saved and sent to PACS. Complications None Technical Quality Overall image quality was good. Total DLP (Dose-Length Product) is 161.9 mGy-cm. The reported value represents the total of one or more individual components during the CT acquisition of this date and at this time, and as such, the same value may appear in more than one CT report depending on the interpreting/reporting physicians. COMPARISON None FINDINGS CT Coronary Calcium Scoring LMA (Left Main Artery) = 0 LAD (Left Anterior Descending) = 224 LCX (Left Coronary Circumflex) = 63 RCA (Right Coronary Artery) = 41 Total Calcium Score = 328 using the AJ-130 method. There is no identifiable calcification in the aortic valve, mitral annulus or mitral valve, pericardium, or myocardium. IMPRESSION -Coronary artery calcification is present. -Total Calcium Score (Agatston Score) = 328 using the AJ-130 method. -The observed calcium score of 328 is at 80th percentile for subjects of the same age, sex, and race/ethnicity. The interpretation of the calcium heart score is based on the following continuum*: 0 = no calcified plaque detected (risk of coronary artery disease is very low ??? less than 5%) 1-10 = calcium detected in extremely minimal levels (risk of coronary diseases is still low ??? less than 10%) 11-100 = mild levels of plaque detected with certainty (mild or minimal narrowing of heart arteries is likely) 101-400 = definite,at least moderate levels of plaque detected (relatively high risk of a heart attack within 3-5 years) >401-999 = extensive levels of plaque detected (high risk of heart attack, high levels of vascular disease are present, high likelihood of at least one significant coronary narrowing) *The calcium heart score quantifies the burden of coronary calcification/plaque in the coronary arteries. The calcium heart score does not evaluate the presence or the burden of non-calcified (i.e. soft) plaque. The coronary and cardiac findings of this Coronary Calcium CT were reviewed, reported, and signed by Payam Power MD ([employer]). Conclusion Electronically signed by : Valentina Power MD 02/29/2024 12:09:59
== END 2024-02-28 23:59 | disposition home or self-care (01) ==
PROVIDERS: PCP Internal Medicine; Visit Provider Physician Assistant
DX: R94.31 Abnormal electrocardiogram [ECG] [EKG] (principal); Z82.49 Family history of ischemic heart disease and other diseases of the circulatory system; G47.33 Obstructive sleep apnea (adult) (pediatric)
CPT/HCPCS: 75571

== ENCOUNTER 2024-02-28 07:26 | Outpatient (CLI) | payer OTHER, SELFPAY ==
--- NOTE | 2024-02-28 07:38 | CA_ITS ---
APPROVED REPORT EXAM: Comprehensive 2D, Doppler, and color-flow Echocardiogram Paid Internship: Cecilia Roth CRT Ht: 5 ft 10 in Wt: 210lbs BSA: 2.13 BP: 164/86 mmHg Indications: COPD, CAD, Hyperlipidemia, Hypertension/HDD, exsmoker, kartihk 2D Dimensions LA Volume 18.40 mL LA Volume Index 8.40 mL/m2 (M/F) 16-34 M-Mode Dimensions RVDd 2.50 cm (0.9-2.6) LA Diam 2.36 cm (1.9-4.0) LVDd 5.22 cm (3.5-5.7) LVDs 3.58 cm (3.5-5.7) IVSd 1.11 cm (0.6-1.1) PWd 1.25 cm (0.6-1.1) EF (Teich) 58.90% FS 31.40% EDV (Teich) 130.70 mL TAPSE 2.17 (<1.7) ESV (Teich) 53.70 mL LV Diastology E Decel Time 180 (160-240 msec) E/A Ratio 0.93 MED A' 13.50 cm/s LAT A' 12.00 cm/s Aortic Valve AO Peak GR. 9.60 mmHg Mitral Valve MV E Max Sisa. 76.0 (40-130 cm/s) MV A Velocity 82.0 (40-130 cm/s) E/A Ratio 0.93 MV PHT 53.0 ms Pulmonary Valve PV Peak Velocity 97.0 (50-150 cm/s) Tricuspid Valve TR P. Velocity 172.00 cm/s RAP Estimate 10.00 mmHg RVSP 21.80 mmHg Left Ventricle The left ventricle is normal size. The left ventricular systolic function is normal. The left ventricular ejection fraction is within the normal range. There is increased LV wall thickness. There is normal LV segmental wall motion. The left ventricular diastolic function is normal. LVEF is 60%. Right Ventricle Right ventricle is mildly dilated. The right ventricular systolic function is normal. Atria The left atrium size is normal. The right atrium is mildly dilated. There is no Doppler evidence of interatrial shunt. Aortic Valve The aortic valve is mildly thickened. There is no aortic valvular stenosis. No aortic regurgitation is present. Mitral Valve The mitral valve is normal in structure. No evidence of mitral valve stenosis. Trace mitral regurgitation. Tricuspid Valve Tricuspid valve is grossly normal in structure and function. Trace tricuspid regurgitation. There is insufficient TR jet to estimate RVSP. Pulmonic Valve The pulmonary valve is normal in structure. Trace pulmonic regurgitation. Great Vessels The aortic root is normal in size. IVC is normal in size and collapses >50% with inspiration. Pericardium There is no pericardial effusion. Other Information Study Quality: Fair Conclusion Normal biventricular systolic function. Mild RV dilation. Mild RA dilation. No significant valvular stenosis or regurgitation. Electronically signed by : Valentina Power MD 03/01/2024 13:10:25
== END 2024-02-28 23:59 | disposition home or self-care (01) ==
LOC: RT 07:26
PROVIDERS: PCP Internal Medicine; Visit Provider Physician Assistant
DX: I51.7 Cardiomegaly (principal); G47.33 Obstructive sleep apnea (adult) (pediatric); Z82.49 Family history of ischemic heart disease and other diseases of the circulatory system
CPT/HCPCS: 93306

== ENCOUNTER 2024-02-29 21:43 | Outpatient (CLI) | payer OTHER, SELFPAY | END 2024-02-29 23:59 | disposition home or self-care (01) | PROVIDERS: PCP Internal Medicine; Visit Provider Internal Medicine | DX: Z02.9 Encounter for administrative examinations, unspecified (principal) ==

== ENCOUNTER → 2024-08-11 08:19 | Day surgery (SDC) | payer OTHER, SELFPAY ==
[2024-08-08 09:52] VITALS: BMI 30.7
--- NOTE | 2024-08-11 07:07 | P.HP_ITS ---
HPI HPI HPI: Patient is very well-known to me. He is a 64-year-old male from [facility] who presents for follow-up colonoscopy. He has a history of hyperlipidemia, obstructive sleep apnea, COPD, hypertension. I have previously seen him for symptoms of abdominal bloating. Patient ultimately did undergo cholecystectomy. He has had appreciable polyps on prior colonoscopies. I had performed colonoscopy on him on 08/13/2015 at which time he had 19 polyps removed. Of these he had 11 tubular adenomas, 5 tubulovillous adenomas, and 2 sessile serrated adenomas. I performed follow-up colonoscopy April 2016 and he had a couple of tubular adenomas. Colonoscopy 2 years later on 05/17/2018 revealed a single tubular adenoma. Colonoscopy on 08/21/2022 revealed rare diverticulosis, prolapsing internal hemorrhoids, and several adenomatous polyps. He had tubular adenomas in the cecum, transverse colon, and sigmoid colon. In the rectosigmoid region there was a sessile serrated adenoma. He states that his abdominal bloating symptoms have returned. Primary care provider is recommended eating foods high in probiotics such as sauerkraut and yogurt. He states that this helped somewhat. [facility] Disclaimer: The information contained in this section may have been updated after the patient was seen, as this information can be updated by other users. Medical History (Updated 08/11/24 @ 08:40 by Tr Man MD) Hyperlipidemia Family history of coronary artery disease in father History of right inguinal hernia Urinary retention Sleep apnea COPD (chronic obstructive pulmonary disease) Chronic cough Hypertension Surgical History History of laparoscopic cholecystectomy History of colonoscopy Family History Other Family history of myocardial infarction Lung cancer Social History (Updated 08/08/24 @ 09:50 by Christy Gates RN) Smoking Status: Former smoker alcohol intake: never substance use type: marijuana counseling provided: none current occupational status: unemployed Travel in the last 8 weeks?: None adopted: No caregiver/support person: No foster care: No household members: family housing: house lives independently: No marital status: caffeine: No Have you lived/traveled outside [place] in past 30 days?: No Contact w/someone who lives/traveled outside US past 30 days?: No Exposure to someone with infectious disease in past 14 days?: No Do you have a fever (greater than 100.4 F or 38 C)?: No Have you tested positive for COVID-19?: No Exposed to someone with COVID-19 in past 14 days?: No Do you have a sore throat?: No Do you have a cough?: No Do you have any weakness?: No Are you experiencing any nausea/vomitting?: No Do you have any diarrhea?: No Are you experiencing any unusual bleeding?: No Do you have any muscle aches/pain?: No Do you have any abdominal pain?: No Are you experiencing loss of taste or smell?: No Other Medical History Have you received the Flu Vaccine for this season: No Have you received the Pneumonia Vaccine: No Meds Home Medications and Allergies Home Medications ?Medication ?Instructions ?Recorded ?Confirmed ?Type Lactobacillus rhamnosus-Bifidobac. 1 cap PO DAILY 03/18/23 08/11/24 History animalis 3 billion cell capsule (Tabber) lisinopril 20 See Rx Instructions .Route 02/08/24 08/11/24 Rx mg-hydrochlorothiazide 12.5 mg .COMPLEX #90 tabs tablet aspirin 81 mg tablet,delayed See Rx Instructions .Route 05/30/24 08/11/24 Rx release .COMPLEX #90 tabs atorvastatin 20 mg tablet See Rx Instructions .Route 08/02/24 08/11/24 Rx .COMPLEX #30 tabs sodium,potassium,mag sulfates 17.5 See Rx Instructions PO .COMPLEX 08/02/24 08/11/24 Rx gram-3.13 gram-1.6 gram oral soln #354 mL (Suprep Bowel Prep Kit) peg 3350-electrolytes 236 240 ml PO Q10M #4,000 mL 08/04/24 08/11/24 Rx gram-22.74 gram-6.74 gram-5.86 gram solution (Golytely) New Prescriptions to Start Prescriptions: Allergies Allergy/AdvReac Type Severity Reaction Status Date / Time No Known Allergies Allergy Verified 08/11/24 08:29 Exam Data for Last 24 hours I & O for Last 24 hours: Intake & Output 08/08/24 08/09/24 08/10/24 08/11/24 11:59 11:59 11:59 11:59 Weight 220 lb Constitutional Constitutional: no acute distress *Routine HEENT Exam Head: Present normocephalic Eye: Present EOMI and PERRL ENT: Present mucous membranes moist *Routine Neck Exam Neck: Present supple; Absent lymphadenopathy *Routine Respiratory Exam Respiratory: Present CTA bilaterally *Routine Cardiovascular Exam Cardiovascular: Present RRR *Routine Abdominal Exam Abdominal: Present soft and normoactive bowel sounds; Absent tenderness *Routine Rectal Exam Rectal:: deferred *Routine Genitalia Exam Genitalia:: deferred *Routine Extremities Exam Extremities: Absent cyanosis, clubbing or edema *Routine Skin Exam Skin: Present warm; Absent rash *Routine Neurological Exam Neurological: Present alert and oriented X3 Assessment and Plan *Assessment and plan (1) Colon polyps: Status: Acute Category: Medical Code(s): K63.5 - Polyp of colon Plan Proceed with follow-up surveillance colonoscopy
[2024-08-11 08:32] VITALS: BP 155/80; PULSE 87; RESP 18; TEMP 36.6; O2SAT 98
[2024-08-11] MEDS: LACTATED RINGERS 1000ML 1,000 ML 50 ML IV (08:44)
--- NOTE | 2024-08-11 08:48 | EXP.ANES.CKL ---
[facility] Disclaimer: The information contained in this section may have been updated after the patient was seen, as this information can be updated by other users. Medical History (Updated 08/11/24 @ 08:40 by Tr Man MD) Hyperlipidemia Family history of coronary artery disease in father History of right inguinal hernia Urinary retention Sleep apnea COPD (chronic obstructive pulmonary disease) Chronic cough Hypertension Surgical History History of laparoscopic cholecystectomy History of colonoscopy Family History Other Family history of myocardial infarction Lung cancer Social History Smoking Status: Former smoker alcohol intake: never substance use type: marijuana counseling provided: none current occupational status: unemployed Travel in the last 8 weeks?: None adopted: No caregiver/support person: No foster care: No household members: family housing: house lives independently: No marital status: caffeine: Yes Have you lived/traveled outside US in past 30 days?: No Contact w/someone who lives/traveled outside US past 30 days?: No Exposure to someone with infectious disease in past 14 days?: No Do you have a fever (greater than 100.4 F or 38 C)?: No Have you tested positive for COVID-19?: No Exposed to someone with COVID-19 in past 14 days?: No Do you have a sore throat?: No Do you have a cough?: No Do you have any weakness?: No Are you experiencing any nausea/vomitting?: No Do you have any diarrhea?: No Are you experiencing any unusual bleeding?: No Do you have any muscle aches/pain?: No Do you have any abdominal pain?: No Are you experiencing loss of taste or smell?: No [facility] Anesthesia Checklist Patient Identification Patient Identification: Arm Band and Verbal (Name & ) Structural Data Admitted From: Home Planned Operative Procedure/s: colonoscopy Consent for Planned Operative Procedure(s) Verified: Yes Verified Documents: Surgical Consent NPO Status Verified Time NPO: 00:00 Chart Verification Results Verified: None Additional verifications Patient : No Anesthesia Reactions: No Hx Blood Transfusions: No Blood Transfusion Reaction: No Airway Assessment Mallampati Score:: Class II C-Spine Mobility Assessed: Yes TMJ Mobility Assessed: No Dentition: Good Dentition Neurological Assessment Level of Consciousness: Awake, Alert and Appropriate Hx Seizures: No Numbness or tingling in extremities: No Anesthesia Plan Anesthesia Risk discussed: Yes Anesthesia Plan: Verified ASA Class: II Anesthesia Type: MAC
[2024-08-11 08:52] VITALS: O2SAT 98
[2024-08-11 09:21] VITALS: BP 88/58; PULSE 75; RESP 16; TEMP 36.4; O2SAT 92
--- NOTE | 2024-08-11 09:22 | HMH.SCOPE ---
Procedure: Date: 08/11/24 Patient Date of :: 1960 Procedure Performed:: Total colonoscopy to terminal ileum with polypectomy using snare and biopsy forceps Indications:: Patient is very well-known to me. He is a 64-year-old male from [facility] who presents for follow-up colonoscopy. He has a history of hyperlipidemia, obstructive sleep apnea, COPD, hypertension. I have previously seen him for symptoms of abdominal bloating. Patient ultimately did undergo cholecystectomy. He has had appreciable polyps on prior colonoscopies. I had performed colonoscopy on him on 08/13/2015 at which time he had 19 polyps removed. Of these he had 11 tubular adenomas, 5 tubulovillous adenomas, and 2 sessile serrated adenomas. I performed follow-up colonoscopy April 2016 and he had a couple of tubular adenomas. Colonoscopy 2 years later on 05/17/2018 revealed a single tubular adenoma. Colonoscopy on 08/21/2022 revealed rare diverticulosis, prolapsing internal hemorrhoids, and several adenomatous polyps. He had tubular adenomas in the cecum, transverse colon, and sigmoid colon. In the rectosigmoid region there was a sessile serrated adenoma. He states that his abdominal bloating symptoms have returned. Primary care provider is recommended eating foods high in probiotics such as sauerkraut and yogurt. He states that this helped somewhat. Performing Provider:: Tr Man MD Referring Provider:: Dillan Cuevas MD Sedation:: MAC sedation Procedure:: Patient history was obtained and appropriate physical examination was performed. Patient's medications and allergies were reviewed. Informed consent was obtained after explaining the benefits, alternatives, and risks of the procedure including, but not limited to, bleeding, perforation, missed lesions, and adverse reaction to anesthesia medications. Patient was transported to endoscopy procedure room. Patient was connected to monitoring devices. Throughout the procedure the patient's blood pressure, pulse, and oxygen saturations were monitored continuously. Patient identification and planned procedure were verified by the staff. Patient was positioned in lateral decubitus position. Digital anorectal exam was performed. Variable stiffness Olympus colonoscope was inserted and advanced under direct visualization to the cecum. Adequacy of the colonic preparation was noted. The colonoscope was advanced a short distance into the terminal ileum. The colonoscope was then slowly withdrawn while carefully examining the color, texture, anatomy, and integrity of the mucosoa circumferentially. Within the rectum retroflexion was performed. Colonoscope was then withdrawn. Impression: There was bilious liquid with gas bubbles throughout the colon. This was able to be cleared with high-volume trans colonoscopic irrigation and suctioning. Near the hepatic flexure and the proximal transverse colon there were a couple of small adenomatous appearing polyps removed with cold snare. There was initially thought to be a tiny minuscule polyp. However with repeated reinsertion of the colonoscope to the cecum and withdrawal this was unable to be identified. There is some rare diverticulosis. There was a diminutive hyperplastic appearing polyp in the rectum removed with biopsy forceps. Retroflexion revealed prolapsing somewhat inflamed internal hemorrhoids. Findings:: Polyps as noted Rare diverticulosis Somewhat prolapsing internal hemorrhoids mildly inflamed Recommendations:: Follow-up colonoscopy pending pathology. Given his history of frequent recurrent adenomatous polyps likely no more than 3 years. Abdominal bloating likely functional. Could benefit from gastroenterology evaluation. Complications:: None immediately apparent Estimated blood obtained (mL): 1 Colonoscopy Component Colonoscopy Component Was a colonoscopy performed during today's procedure?: Yes Recommended follow up colonoscopy of at least 10 years?: No If no, follow up colonoscopy recommended in ___ years?: See above Reason for not recommending >/= 10 yr follow-up interval?: See above
[2024-08-11 09:31] VITALS: BP 104/86; PULSE 74; RESP 16; O2SAT 96
[2024-08-11 09:41] VITALS: BP 112/62; PULSE 70; RESP 16; O2SAT 97
[2024-08-11 09:45] VITALS: BP 114/71; PULSE 69; RESP 16; O2SAT 98
== END | disposition home or self-care (01) ==
PROVIDERS: PCP Family Medicine; Visit Provider Surgery
PROC: 0DJD8ZZ Inspection of Lower Intestinal Tract, Via Natural or Artificial Opening Endoscopic (ICD-10-PCS; CPT 45380; principal; 2024-08-11 09:30)
DX: Z12.11 Encounter for screening for malignant neoplasm of colon (principal); Z86.0100 Personal history of colon polyps, unspecified; D12.3 Benign neoplasm of transverse colon; K63.5 Polyp of colon; K57.30 Diverticulosis of large intestine without perforation or abscess without bleeding; K64.8 Other hemorrhoids
CPT/HCPCS: 45380; 45385; J7120

== ENCOUNTER 2024-11-13 14:11 | Outpatient (CLI) | payer OTHER, SELFPAY ==
[2024-11-13 19:23] LABS: Hematocrit 43.9 % (42.0-52.0); Hemoglobin 14.7 g/dL (14.1-18.0); Immature Granulocytes % 0.4 %; Mean Corpuscular HGB Conc 33.5 g/dL (31.8-35.4); Mean Corpuscular Hemoglobin 29.5 pg (27.0-31.2); Mean Corpuscular Volume 88.2 fl (80-94); Nucleated Red Blood Cells % 0 %; Platelet Count 283 K/mm3 (142-424); Red Blood Count 4.98 M/mm3 (4.60-6.20); Red Cell Distribution Width-SD 40.9 fL; White Blood Count 10.1 K/mm3 (4.8-10.8)
[2024-11-13 20:00] LABS: Alanine Aminotransferase 23 U/L (12-78); Albumin Level 4.4 g/dl (3.5-5.0); Albumin/Globulin Ratio 2.0 (1.1-1.8); Alkaline Phosphatase 108 U/L (38-126); Anion Gap 11.1 mEq/L (5-15); Aspartate Amino Transferase 25 U/L (17-59); Bilirubin,Total 0.4 mg/dl (0.2-1.3); Blood Urea Nitrogen 18 mg/dl (9-20); Calcium 9.3 mg/dl (8.4-10.2); Carbon Dioxide 26 mmol/L (22.0-30.0); Chloride 102 mmol/L (98-107); Cholesterol 148 mg/dl (140-200); Creatinine,Serum 0.70 mg/dl (0.66-1.25); Estimated Glomerular Filt Rate 114 ml/min (>60); GFR (African American) 138 ML/MIN (>60); Globulin 2.2 g/dL (1.3-3.2); Glucose 199 mg/dl (74-100); HDL Cholesterol 46 mg/dl (40-60); Potassium 4.1 mmoL/L (3.5-5.1); Sodium 135 mmol/L (136-145); Total Protein,Serum 6.6 g/dl (6.3-8.2); Triglycerides 249 mg/dl (30-150)
[2024-11-14 10:40] LABS: Hemoglobin A1C 6.4 % (4.0-6.0)
== END 2024-11-13 23:59 | disposition home or self-care (01) ==
LOC: LAB.DROPOF 11-14 11:05
PROVIDERS: PCP Family Medicine; Visit Provider Family Medicine
DX: J44.9 Chronic obstructive pulmonary disease, unspecified (principal); E78.5 Hyperlipidemia, unspecified; R73.09 Other abnormal glucose; E78.2 Mixed hyperlipidemia; E66.811 Obesity, class 1; I10 Essential (primary) hypertension; R73.03 Prediabetes
CPT/HCPCS: 80053; 80061; 82043; 82570; 83036; 85025